=== PATIENT | male | born 1955 | race Caucasian/White ===

== ENCOUNTER 2019-07-24 22:34 | Inpatient (IN) | payer OTHER ==
[~2019-07-24] VITALS: Ht 180.3 cm; Wt 132.5 kg
[2019-07-24 23:00] VITALS: BP 136/85
[2019-07-25] VITALS (11 sets, daily range): BP systolic 110–139; BP diastolic 57–92
[2019-07-25] MEDS ORDERED: LANTUSUD SUBCUT (00:46)
[2019-07-25] MEDS ORDERED: GLIP5TAB12 MT (00:46)
[2019-07-25] MEDS ORDERED: CARV25TA47 MT (00:46)
[2019-07-25] MEDS ORDERED: DABI150C MT (00:46)
[2019-07-25] MEDS ORDERED: METF-416 MT (00:46)
[2019-07-25] MEDS ORDERED: FURO40TA5 MT (00:46)
[2019-07-25] MEDS ORDERED: POTA8CAP20 MT (00:46)
[2019-07-25] MEDS ORDERED: ATOR-2 MT (00:46)
[2019-07-25] MEDS ORDERED: VITA-261 MT (00:46)
[2019-07-25] MEDS ORDERED: BENA10TA74 MT (00:46)
[2019-07-25] MEDS ORDERED: MORPHINE SULFATE 2 MG/ML CPJ (NOT FOR IM USE) IV PRN (02:00)
[2019-07-25] MEDS: METFORMIN HCL 500MG TABLET PO SCH ×2 (06:58→17:33)
[2019-07-25] MEDS: OMEPRAZOLE 20MG CAPSULE EXTENDED RELEASE PO SCH ×2 (06:58→20:18)
[2019-07-25] MEDS: INSULIN LISPRO 100 UNITS/ML SUBCUT SCH ×4 (08:49→20:42)
[2019-07-25] MEDS: BENAZEPRIL 10MG TABLET PO SCH (08:51)
[2019-07-25] MEDS: FUROSEMIDE 40MG TABLET PO SCH (08:52)
[2019-07-25] MEDS: POTASSIUM CHLORIDE 10MEQ TABLET SR PO SCH (08:52)
[2019-07-25] MEDS: CARVEDILOL 12.5MG TABLET PO SCH ×2 (08:52→20:18)
[2019-07-25] MEDS: CHOLECALCIFEROL (D3) 1000 UNIT TABLET PO SCH (08:53)
[2019-07-25] MEDS: GLIPIZIDE 5MG TABLET PO SCH ×2 (08:53→17:33)
[2019-07-25] MEDS ORDERED: POTASSIUM CHLORIDE 8 MEQ TABLET.SA PO SCH (09:00)
[2019-07-25 12:15] LABS: BASOPHILS % 0.9 % (0.0-2.0); EOSINOPHILS % 1.5 % (0.0-5.0); HEMATOCRIT. 47.5 % (42.0-52.0); HEMOGLOBIN. 17.1 g/dL (14.0-18.0); LYMPHOCYTES % 10.2 % (20.0-50.0); MEAN CORPUSCULAR HEMOGLOBIN 33.8 pg (28.0-32.0); MEAN PLATELET VOLUME 7.8 fl (7.4-10.4); MONOCYTES % 10.6 % (2.0-8.0); NEUTROPHILS % 76.8 % (40.0-76.0); PLATELET 167 x1000/uL (130-400); RED BLOOD CELL COUNT 5.05 mill/uL (4.7-6.1); RED CELL DISTRIBUTION WIDTH 14.1 % (11.6-14.6)
[2019-07-25 12:22] LABS: PROTHROMBIN TIME 11.1 sec (9.6-11.0)
[2019-07-25 12:23] LABS: CHLORIDE 105 mEq/L (98-107)
[2019-07-25] MEDS ORDERED: IPRATROPIUM/ALBUTEROL 0.5-3(2.5)MG/3ML NEB HHN PRN (13:30)
[2019-07-25] MEDS: ATORVASTATIN CALCIUM 40MG TABLET PO SCH (20:16)
[2019-07-26] VITALS (12 sets, daily range): BP systolic 101–145; BP diastolic 72–89
[2019-07-26 06:01] LABS: PARTIAL THROMBOPLASTIN TIME 32.4 sec (23.4-31.0); PROTHROMBIN TIME 10.8 sec (9.6-11.0)
[2019-07-26 06:03] LABS: BASOPHILS % 0.6 % (0.0-2.0); EOSINOPHILS % 1.5 % (0.0-5.0); HEMATOCRIT. 46.3 % (42.0-52.0); HEMOGLOBIN. 16.4 g/dL (14.0-18.0); LYMPHOCYTES % 13.2 % (20.0-50.0); MEAN CORPUSCULAR HEMOGLOBIN 33.4 pg (28.0-32.0); MEAN CORPUSCULAR VOLUME 94.4 fL (80.0-94.0); MEAN PLATELET VOLUME 7.9 fl (7.4-10.4); MONOCYTES % 12.5 % (2.0-8.0); NEUTROPHILS % 72.2 % (40.0-76.0); PLATELET 163 x1000/uL (130-400); RED BLOOD CELL COUNT 4.91 mill/uL (4.7-6.1); RED CELL DISTRIBUTION WIDTH 14.3 % (11.6-14.6)
[2019-07-26] MEDS: METFORMIN HCL 500MG TABLET PO SCH ×2 (06:25→17:00)
[2019-07-26] MEDS: OMEPRAZOLE 20MG CAPSULE EXTENDED RELEASE PO SCH (06:26)
[2019-07-26] MEDS: GLIPIZIDE 5MG TABLET PO SCH ×2 (08:14→16:59)
[2019-07-26] MEDS: CHOLECALCIFEROL (D3) 1000 UNIT TABLET PO SCH (08:14)
[2019-07-26] MEDS: BENAZEPRIL 10MG TABLET PO SCH (08:14)
[2019-07-26] MEDS: CARVEDILOL 12.5MG TABLET PO SCH ×2 (08:14→20:12)
[2019-07-26] MEDS: FUROSEMIDE 40MG TABLET PO SCH (08:14)
[2019-07-26] MEDS: POTASSIUM CHLORIDE 10MEQ TABLET SR PO SCH (08:15)
[2019-07-26] MEDS: INSULIN LISPRO 100 UNITS/ML SUBCUT SCH ×4 (08:18→20:54)
[2019-07-26] MEDS ORDERED: FUROSEMIDE 40MG/4ML VIAL IVP SCH (10:30)
[2019-07-26] MEDS ORDERED: ASPIRIN 81MG EC TABLET PO SCH (10:45)
[2019-07-26] MEDS: FAMOTIDINE 20MG TABLET PO SCH (20:11)
[2019-07-26] MEDS: FUROSEMIDE 40MG/4ML VIAL IVP SCH (20:11)
[2019-07-26] MEDS: ATORVASTATIN CALCIUM 40MG TABLET PO SCH (20:13)
[2019-07-27] VITALS (15 sets, daily range): BP systolic 109–173; BP diastolic 50–101
[2019-07-27] MEDS: FAMOTIDINE 20MG TABLET PO SCH ×2 (05:52→21:32)
[2019-07-27 06:09] LABS: BASOPHILS % 0.6 % (0.0-2.0); EOSINOPHILS % 1.6 % (0.0-5.0); HEMATOCRIT. 47.6 % (42.0-52.0); HEMOGLOBIN. 16.6 g/dL (14.0-18.0); LYMPHOCYTES % 12.7 % (20.0-50.0); MEAN CORPUSCULAR HEMOGLOBIN 33.2 pg (28.0-32.0); MEAN CORPUSCULAR VOLUME 95.2 fL (80.0-94.0); MEAN PLATELET VOLUME 8.1 fl (7.4-10.4); MONOCYTES % 11.9 % (2.0-8.0); NEUTROPHILS % 73.2 % (40.0-76.0); PLATELET 170 x1000/uL (130-400); RED CELL DISTRIBUTION WIDTH 14.2 % (11.6-14.6)
[2019-07-27] MEDS: GLIPIZIDE 5MG TABLET PO SCH ×2 (08:13→17:43)
[2019-07-27] MEDS: FUROSEMIDE 40MG/4ML VIAL IVP SCH ×2 (08:13→17:43)
[2019-07-27] MEDS: POTASSIUM CHLORIDE 10MEQ TABLET SR PO SCH (08:14)
[2019-07-27] MEDS: CARVEDILOL 12.5MG TABLET PO SCH ×4 (08:14→21:32)
[2019-07-27] MEDS: METFORMIN HCL 500MG TABLET PO SCH ×2 (08:14→17:43)
[2019-07-27] MEDS: BENAZEPRIL 10MG TABLET PO SCH ×3 (08:15→08:34)
[2019-07-27] MEDS: ASPIRIN 81MG EC TABLET PO SCH ×3 (08:15→08:33)
[2019-07-27] MEDS: INSULIN LISPRO 100 UNITS/ML SUBCUT SCH ×4 (08:34→21:47)
[2019-07-27] MEDS: CHOLECALCIFEROL (D3) 1000 UNIT TABLET PO SCH (08:35)
[2019-07-27] MEDS ORDERED: HEPARIN SODIUM 1,000 UNIT/1ML VIAL IV ONE (12:20)
[2019-07-27] MEDS ORDERED: DIPHENHYDRAMINE 50MG/ML VIAL ONE (12:38)
[2019-07-27] MEDS ORDERED: FAMOTIDINE 20MG/2ML VIAL IV ONE (12:39)
[2019-07-27] MEDS ORDERED: HYDROCORTISONE SOD SUCCINATE 250 MG/2 ML VIAL ONE (12:39)
[2019-07-27] MEDS ORDERED: LIDOCAINE HCL 1% 20ML VIAL (Pyxis) INJ ONE (13:20)
[2019-07-27] MEDS ORDERED: IODIXANOL 320MG/ML 100 ML BOTTLE IV ONE ×2 (13:20→14:36)
[2019-07-27] MEDS ORDERED: MIDAZOLAM HCL 2 MG/2 ML VIAL ONE ×2 (13:21→13:57)
[2019-07-27] MEDS ORDERED: FENTANYL CITRATE/PF 50MCG/ML 2ML VIAL ONE (13:21)
[2019-07-27] MEDS ORDERED: ATROPINE SULFATE 0.1MG/ML 10ML DISP.SYRIN ONE (14:10)
[2019-07-27] MEDS ORDERED: IOHEXOL-300 100 ML BOTTLE ONE (14:22)
[2019-07-27] MEDS ORDERED: CLOPIDOGREL 75MG TABLET ONE (14:59)
[2019-07-27] MEDS ORDERED: ASPIRIN 325MG TABLET ONE (15:03)
[2019-07-27] MEDS ORDERED: ATROPINE SULFATE 1MG/10ML SYR IV PRN (15:15)
[2019-07-27] MEDS ORDERED: ONDANSETRON HCL 4MG/2ML INJ IV PRN (15:15)
[2019-07-27] MEDS ORDERED: ACETAMINOPHEN 325MG TABLET PO PRN (15:15)
[2019-07-27] MEDS: ATORVASTATIN CALCIUM 40MG TABLET PO SCH (21:32)
[2019-07-28] VITALS (7 sets, daily range): BP systolic 118–147; BP diastolic 74–89
[2019-07-28] MEDS: FAMOTIDINE 20MG TABLET PO SCH (06:33)
[2019-07-28] MEDS: FUROSEMIDE 40MG/4ML VIAL IVP SCH (06:33)
[2019-07-28 07:29] LABS: BASOPHILS % 0.6 % (0.0-2.0); EOSINOPHILS % 0.6 % (0.0-5.0); HEMATOCRIT. 51.4 % (42.0-52.0); HEMOGLOBIN. 18.1 g/dL (14.0-18.0); MEAN CORPUSCULAR HEMOGLOBIN 33.3 pg (28.0-32.0); MEAN CORPUSCULAR VOLUME 94.4 fL (80.0-94.0); MEAN PLATELET VOLUME 7.9 fl (7.4-10.4); NEUTROPHILS % 75.8 % (40.0-76.0); PLATELET 190 x1000/uL (130-400); RED BLOOD CELL COUNT 5.44 mill/uL (4.7-6.1); RED CELL DISTRIBUTION WIDTH 14.2 % (11.6-14.6)
[2019-07-28] MEDS: METFORMIN HCL 500MG TABLET PO SCH (07:55)
[2019-07-28] MEDS ORDERED: CLOPIDOGREL 75MG TABLET PO SCH (09:00)
[2019-07-28] MEDS ORDERED: ASPIRIN 325MG TABLET PO SCH (09:00)
[2019-07-28] MEDS: INSULIN LISPRO 100 UNITS/ML SUBCUT SCH ×2 (09:01→12:05)
[2019-07-28] MEDS: CHOLECALCIFEROL (D3) 1000 UNIT TABLET PO SCH (09:04)
[2019-07-28] MEDS: CARVEDILOL 12.5MG TABLET PO SCH (09:05)
[2019-07-28] MEDS: GLIPIZIDE 5MG TABLET PO SCH (09:06)
[2019-07-28] MEDS: BENAZEPRIL 10MG TABLET PO SCH (09:06)
[2019-07-28] MEDS: POTASSIUM CHLORIDE 10MEQ TABLET SR PO SCH (09:06)
== END 2019-07-28 13:26 | disposition home or self-care (01) | DRG 246 ==
LOC: ER 22:34 → 3WST 23:07
PROVIDERS: ADMIT Internal Medicine; ATTEND Internal Medicine
PROC: 027034Z Dilation of Coronary Artery, One Artery with Drug-eluting Intraluminal Device, Percutaneous Approach (ICD-10-PCS; principal; 2019-07-27)
PROC: 4A023N7 Measurement of Cardiac Sampling and Pressure, Left Heart, Percutaneous Approach (ICD-10-PCS; 2019-07-27)
PROC: B211YZZ Fluoroscopy of Multiple Coronary Arteries using Other Contrast (ICD-10-PCS; 2019-07-27)
DX: I25.110 Atherosclerotic heart disease of native coronary artery with unstable angina pectoris (principal); I50.43 Acute on chronic combined systolic (congestive) and diastolic (congestive) heart failure; Z68.41 Body mass index [BMI] 40.0-44.9, adult; E44.1 Mild protein-calorie malnutrition; I11.0 Hypertensive heart disease with heart failure; I25.5 Ischemic cardiomyopathy; E11.9 Type 2 diabetes mellitus without complications; E78.00 Pure hypercholesterolemia, unspecified; I48.91 Unspecified atrial fibrillation; E78.5 Hyperlipidemia, unspecified; E66.01 Morbid (severe) obesity due to excess calories; I87.8 Other specified disorders of veins; N28.9 Disorder of kidney and ureter, unspecified; Z85.46 Personal history of malignant neoplasm of prostate; Z92.3 Personal history of irradiation; Z95.810 Presence of automatic (implantable) cardiac defibrillator; I25.2 Old myocardial infarction; Z95.1 Presence of aortocoronary bypass graft; Z95.5 Presence of coronary angioplasty implant and graft; Z86.74 Personal history of sudden cardiac arrest; Z91.040 Latex allergy status; Z91.09 Other allergy status, other than to drugs and biological substances; Z79.84 Long term (current) use of oral hypoglycemic drugs; Z79.4 Long term (current) use of insulin; Z79.899 Other long term (current) drug therapy; Z83.3 Family history of diabetes mellitus; Z82.49 Family history of ischemic heart disease and other diseases of the circulatory system; Z88.8 Allergy status to other drugs, medicaments and biological substances
CPT/HCPCS: 36415; 80048; 80053; 82962; 83036; 84484; 85025; 92928; 93005; 93306; 93454; 99285; C1760; C1769; C1874; C1887; C1893; J0461; J1200; J1644; J1720; J1815; J1940; J2250; J3010; J3490; L1830; Q9967; U0003-CS